=== PATIENT | female | born 1975 | race Caucasian/White ===

== ENCOUNTER 2016-06-30 22:59 | Emergency (ER) | payer OTHER ==
[2016-06-30] MEDS ORDERED: DEXAMETHASONE 10 MG/ML VIAL PO STA (23:47)
[2016-06-30] MEDS ORDERED: CHERRY SYRUP 10 ML UDC PO ONE (23:48)
[2016-06-30] MEDS ORDERED: DEXAMETHASONE 10 MG/ML VIAL ONE (23:48)
[2016-06-30] MEDS ORDERED: HYDROcod/ACET 5/325 Prepack 6 PO ONE ×2 (23:52→23:54)
[2016-06-30] MEDS ORDERED: CYCLOBENZAPRINE 10 MG Prepack 2 PO ONE (23:52)
[2016-06-30] MEDS ORDERED: CYCLOBENZAPRINE 10 MG Prepack 2 PO PRN (23:54)
== END 2016-07-01 00:08 | disposition home or self-care (01) ==
DX: S39.012A Strain of muscle, fascia and tendon of lower back, initial encounter (principal); X50.0XXA Overexertion from strenuous movement or load, initial encounter; Y93.89 Activity, other specified; Y92.29 Other specified public building as the place of occurrence of the external cause; Y99.0 Civilian activity done for income or pay; R03.0 Elevated blood-pressure reading, without diagnosis of hypertension
CPT/HCPCS: 99283; A9270